=== PATIENT | female | born 1995 | race Caucasian/White ===

== ENCOUNTER 2024-04-15 13:52 | Emergency (ER) | payer BC, OTHER ==
[~2024-04-15] VITALS: Ht 165.1 cm; Wt 70.0 kg
[~2024-04-15 13:52] MED LIST: CEPH-585 PO; CLOT15CR74 TP; CYCL-1 PO; MEBE100T11 PO; MEDR5TAB PO; ONDA-245 PO; TIZA4CAP PO
[2024-04-15] MEDS ORDERED: HYDR-3972 PO ×2 (14:04→14:52)
[2024-04-15] MEDS ORDERED: TAM75C PO (14:04)
[2024-04-15] MEDS ORDERED: ALBU8HFA INH (14:04)
[2024-04-15] MEDS ORDERED: PROM118S5 PO (14:04)
[2024-04-15] MEDS ORDERED: PRED20TA PO (14:04)
[2024-04-15] MEDS: dexamethasone sod phosphate 10mg/ml inj PO STA (14:18)
[2024-04-15] MEDS: ketorolac trometh 30MG/ML vial 30 MG/ML VIAL IM ONE (14:19)
[2024-04-15] MEDS: LIDOcaine 1% W/epiNEPHrine 1:100,000 20ml vial SQ ONE (14:21)
[2024-04-15] MEDS ORDERED: HYDR-3973 PO (14:53)
[2024-04-15] MEDS ORDERED: ALPR2TAB2 PO (14:55)
[2024-04-15 15:40] VITALS: BP 111/64; PULSE 64; RESP 16; TEMP 98.4; O2SAT 99
== END 2024-04-15 15:00 | disposition home or self-care (01) ==
LOC: ER 13:53
DX: J11.1 Influenza due to unidentified influenza virus with other respiratory manifestations (principal); Z79.899 Other long term (current) drug therapy
CPT/HCPCS: 96372; 99284; J1100; J1885

== ENCOUNTER 2024-04-22 18:24 | Emergency (ER) | payer BC ==
[~2024-04-22] VITALS: Ht 165.1 cm; Wt 65.0 kg
[~2024-04-22 18:24] MED LIST changes: +ALBU8HFA INH; +ALPR2TAB2 PO; +HYDR-3972 PO; +PRED20TA PO; +PROM118S5 PO; +TAM75C PO
[2024-04-22 18:26] VITALS: BP 122/83; PULSE 79; RESP 15; TEMP 98.3; O2SAT 99
== END 2024-04-22 19:34 | disposition home or self-care (01) ==
LOC: ER 18:25
DX: S61.032A Puncture wound without foreign body of left thumb without damage to nail, initial encounter (principal); X58.XXXA Exposure to other specified factors, initial encounter; Y93.89 Activity, other specified; Y92.89 Other specified places as the place of occurrence of the external cause; Y99.8 Other external cause status
CPT/HCPCS: 99281

== ENCOUNTER 2024-11-23 18:15 | Emergency (ER) | payer BC ==
[~2024-11-23] VITALS: Ht 160 cm; Wt 75.0 kg
[~2024-11-23 18:15] MED LIST changes: -CEPH-585 PO
[2024-11-23 18:26] VITALS: BP 115/82; PULSE 80; TEMP 98; O2SAT 99
--- NOTE | 2024-11-23 18:34 | Physician Documentation ---
HPI ~ General Chief Complaint: Medication Request Stated Complaint: MED REQUEST Time Seen by MD: 18:29 History of Present Illness HPI Comments Year old female presents requesting medication for stress, patient reports she has been advised that she may need an SSRI due to life stressors. Reports feeling otherwise well and reports I just feel overwhelmed with school and work right now Medication Reconciliation Allergies: Coded Allergies: No Known Allergies (Unverified , 04/22/24) Scheduled Clotrimazole (Lotrimin Cream), 1 APPLIC TP BID Cyclobenzaprine* (Cyclobenzaprine*), 1 TAB PO TID Cyclobenzaprine* (Cyclobenzaprine*), 1 TAB PO HS Escitalopram Oxalate (Escitalopram Oxalate), 1 TAB PO DAILY Mebendazole (Emverm), 1 TAB PO BID Medroxyprogesterone Acet (Provera), 5 MG PO DAILY Ondansetron 8mg ODT (Ondansetron Odt), 1 TAB PO Q6H Oseltamivir Phosphate (Tamiflu), 1 CAP PO Q12H Prednisone* (Prednisone*), 1 TAB PO Q12H Tizanidine Hcl (Zanaflex), 1 CAP PO Q8H Scheduled PRN Alprazolam (Xanax), 1 TAB PO Q12H PRN PRN for anxiety D-Methorphan Hb/Prometh HCl (Promethazine-Dm Syrup), 5 ML PO Q4HPRN PRN for cough Hydrocodone Bit/Acetaminophen (Hydrocodon-Acetaminophn 10-325 tablet), 1 TAB PO QID PRN PRN for pain albuterol inhaler (Pro-Air Inhaler), 2 PUFFS INH Q4HPRN PRN for wheezing Past Medical History Past Medical History: Depression ( depression) Review of Systems ROS As stated above in the HPI, otherwise all systems are reviewed and negative. Physical Exam Physical Exam Vital Signs: Temperature: 98.0, Heart Rate: 80, Respiratory Rate: 16, BP: 115/82, Pulse Oximetry: 99, Weight: 75.000 Physical Exam VITALS: Reviewed and as above. GENERAL: Alert, nontoxic appearing, no apparent distress. RESPIRATORY: No increased work of breathing, no respiratory distress, speaking in full clear sentences PSYCH: Flat mood and affect Progress Results/Orders Results/Orders Completed Orders - KRUPA ALVARADO Lorazepam Tablet (Ativan Tablet) (11/23/24 18:40) Vital Signs 11/23/24 11/23/24 18:26 18:47 Temp 98.0 Pulse 80 Resp 16 18 B/P (MAP) 115/82 Pulse Ox 99 Medical Decision Making Findings This 28-year-old female presented with feelings of being overwhelmed due to life stressors including school and busy work schedule symptoms are consistent with anxiety depression, SSRI indicated. With shared decision-making patient is started on Lexapro and patient is to follow up with primary care provider, mental health professional, counseled. Patient provided follow up instructions, home care instructions, and return to care precautions which she verbalized understanding of. Differential Dx:Considerations: Include: Other (Bi-polar, anxiety, depression, SI, HI) Departure Time of Disposition: 18:35 Disposition: 01 HOME / SELF CARE / HOMELESS Impression: Primary Impression: Anxiety and depression Condition: Improved Additional Instructions: Please take half a dose for the 1st week to avoid GI upset, after the 1st week take full dose. I recommend following up with counselor/mental health pr ofessional and your primary care to manage these symptoms on a longer-term basis. Please follow up with your primary care provider in the next few days. Please return to the emergency department for any new or worsening concerning symptoms. Referrals: NO PRIMARY CARE PROVIDER (PCP) Prescriptions Escitalopram Oxalate (Escitalopram Oxalate) 20 Mg Tablet 1 TAB PO DAILY for 90 Days, #90 TAB 0 Refills Prov: KRUPA ALVARADO 11/23/24 Education Educated: Patient Educated regarding: diagnosis, treatment, prognosis, need for follow up Signature Scribe Signature: No Scribe Attestation: The note accurately reflects work and decisions made by me.ZE Navarro 11/24/24 11:18 KRUPA ALVARADO Nov 23, 2024 18:34
[2024-11-23] MEDS ORDERED: ESCI20TA39 PO (18:37)
[2024-11-23 18:47] VITALS: RESP 18
== END 2024-11-23 18:49 | disposition home or self-care (01) ==
LOC: ER 18:16
DX: F41.9 Anxiety disorder, unspecified (principal); F32.A Depression, unspecified
CPT/HCPCS: 99283; 99284